=== PATIENT | female | born 1960 | race Caucasian/White ===

== ENCOUNTER 2016-03-21 08:15 | Emergency (ER) | payer BC ==
[2016-03-21 08:25] VITALS: BP 130/61
--- NOTE | 2016-03-21 08:44 | UC ---
Respiratory Complaint HPI - HPI Summary HPI Summary: URI symptoms for 10d. Coughed all night last night. Today felt exhausted, productive cough, mild sinus congestion. No ST. Feels chilled and achey, no measured fevers. Non-smoker - History of Current Complaint Chief Complaint: UCRespiratory Stated Complaint: SORE THROAT,CHILLS,COUGH Time Seen by Provider: 03/21/16 08:32 Hx Obtained From: Patient Hx Last Menstrual Period: 10 yrs Onset/Duration: Gradual Onset Timing: Constant Severity Initially: Mild Severity Currently: Mild Character: Cough: Productive Aggravating Factors: Exertion, Recumbent Position Alleviating Factors: Nothing Associated Signs And Symptoms: Positive: Chills, URI, Nasal Congestion, Hoarseness, Sinus Discomfort - Risk Factors Pulmonary Embolism Risk Factors: Negative Cardiac Risk Factors: Negative Pseudomonas Risk Factors: Negative Tuberculosis Risk Factors: Negative - Allergies/Home Medications Allergies/Adverse Reactions: Allergies Allergy/AdvReac Type Severity Reaction Status Date / Time Oxycodone [From Percocet] Allergy Intermediate hallucinati Verified 03/21/16 08: 21 on steroids Allergy hives/rash Uncoded 03/21/16 08:21 Home Medications: Home Medications Cyanocobalamin TAB* [Vitamin B12 TAB*] 500 mcg PO DAILY 03/21/16 [History Confirmed 03/21/16] Dextromethorphan HBr [Vicks Dayquil Cough] 15 mg PO Q6H PRN 03/21/16 [History Confirmed 03/21/16] Multivitamins/Minerals TAB* [Thera M Plus TAB*] 1 tab PO DAILY 03/21/16 [ History Confirmed 03/21/16] PMH/Surg Hx/FS Hx/Imm Hx Endocrine History Of: Denies: Diabetes, Thyroid Disease Cardiovascular History Of: Denies: Cardiac Disorders, Hypertension Respiratory History Of: Denies: COPD, Asthma GI/ History Of: Denies: Ulcer Psychological History Of: Reports: Anxiety - Surgical History Surgical History: Yes Surgery Procedure, Year, and Place: gastric bypass 2012. ovaries and fallopion tubes removed 2010. knee surgery 2009. khoi-1988. R breast- pre-cancerous cells - Family History Known Family History: Positive: Cardiac Disease, Hypertension - Social History Occupation: Employed Full-time - hairdresser Lives: With Family Alcohol Use: None Substance Use Type: None Smoking Status (MU): Never Smoked Tobacco Have You Smoked in the Last Year: No - Immunization History Most Recent Influenza Vaccination: Not the 2015/2016 Season Review of Systems Constitutional: Chills, Fatigue Skin: Negative Eyes: Negative ENT: Nasal Discharge Respiratory: Cough Cardiovascular: Negative Gastrointestinal: Negative Genitourinary: Negative Motor: Negative Neurovascular: Negative Musculoskeletal: Negative Neurological: Negative Psychological: Negative All Other Systems Reviewed And Are Negative: Yes Physical Exam Triage Information Reviewed: Yes Appearance: Well-Appearing, No Pain Distress, Well-Nourished Vital Signs: Initial Vital Signs Temp 98.5 F 03/21/16 08:18 Pulse 72 03/21/16 08:18 Resp 16 03/21/16 08:18 BP 130/61 03/21/16 08:18 Pulse Ox 99 03/21/16 08:18 Vital Signs Reviewed: Yes Eye Exam: Normal ENT: Positive: Pharynx normal, Nasal congestion, TMs normal. Negative: Tonsillar swelling, Tonsillar exudate, Trismus, Muffled/hoarse voice Neck exam: Normal Respiratory Exam: Normal Respiratory: Positive: Lungs clear, Normal breath sounds, No respiratory distress, No accessory muscle use Cardiovascular Exam: Normal Musculoskeletal Exam: Normal Neurological Exam: Normal Psychological Exam: Normal Skin Exam: Normal UC Diagnostic Evaluation - Laboratory O2 Sat by Pulse Oximetry: 99 Respiratory Course/Dx - Differential Dx/Diagnosis Differential Diagnosis/HQI/PQRI: Bronchitis, Lower Resp Infection, Sinusitis Provider Diagnoses: URI Discharge - Discharge Plan Condition: Stable Disposition: HOME Prescriptions: Hydrocodone Polistirex-Chlorph [Tussionex Pennkinetic Ext 10-8 mg/5Ml] 1 teasp PO BID PRN #60 ml MDD 10cc PRN Reason: Cough Patient Education Materials: Upper Respiratory Infection (ED) Referrals: Duncan Kerr MD [Primary Care Provider] -
== END 2016-03-21 08:52 | disposition home or self-care (01) ==
LOC: UCCORT 08:15
DX: J06.9 Acute upper respiratory infection, unspecified (principal); Z88.5 Allergy status to narcotic agent; Z88.8 Allergy status to other drugs, medicaments and biological substances
CPT/HCPCS: 99212; G0463

== ENCOUNTER 2016-09-01 09:41 | Emergency (ER) | payer BC ==
[2016-09-01] MEDS ORDERED: Tetan/Diph/Pertus SYR(Tdap)* 0.5 ML SYR(BOOSTRIX) use SYR IM ONE (10:57)
--- NOTE | 2016-09-01 10:57 | UC ---
Lower Extremity/Ankle HPI - HPI Summary HPI Summary: pw from wood on a deck to left foot 5 days ago. heel very painful - History of Current Complaint Chief Complaint: UCLowerExtremity Stated Complaint: LEFT FOOT WOUND Time Seen by Provider: 09/01/16 10:49 Hx Obtained From: Patient Hx Last Menstrual Period: 10 yrs ?: No Onset/Duration: Sudden Onset, Lasting Days - 5, Still Present Severity Initially: Moderate Severity Currently: Moderate Pain Intensity: 8 Pain Scale Used: 0-10 Numeric Aggravating Factor(s): Standing, Ambulation Alleviating Factor(s): Rest, Elevation Able to Bear Weight: Yes - Allergies/Home Medications Allergies/Adverse Reactions: Allergies Allergy/AdvReac Type Severity Reaction Status Date / Time Oxycodone [From Percocet] Allergy Intermediate hallucinati Verified 09/01/16 10: 49 on steroids Allergy hives/rash Uncoded 09/01/16 10:49 Home Medications: Home Medications Cranberry (Vaccinium Macrocarp [Cranberry] 1,500 mg PO DAILY 09/01/16 [History Confirmed 09/01/16] Ginseng [Ginseng Energy Booster] 100 mg PO DAILY 09/01/16 [History Confirmed 03/20] [place]-3 Fatty Acids [Fish Oil] 1,400 mg PO DAILY 09/01/16 [History Confirmed 03/20] PMH/Surg Hx/FS Hx/Imm Hx Previously Healthy: Yes Psychological History: Depression - Surgical History Surgical History: Yes Surgery Procedure, Year, and Place: gastric bypass 2012. ovaries and fallopion tubes removed 2010. knee surgery 2009. khoi-1988. R breast- pre-cancerous cells - Family History Known Family History: Positive: Cardiac Disease, Hypertension - Social History Occupation: Employed Full-time Lives: With Family Alcohol Use: None Substance Use Type: None Smoking Status (MU): Never Smoked Tobacco Have You Smoked in the Last Year: No - Immunization History Most Recent Influenza Vaccination: Not the 2016/2016 Season Review of Systems Constitutional: Negative Skin: Negative Eyes: Negative ENT: Negative Respiratory: Negative Cardiovascular: Negative Gastrointestinal: Negative Genitourinary: Negative Motor: Negative Neurovascular: Negative Musculoskeletal: Negative, Other: - pain in the soft tissue bottom of left heel Neurological: Negative Psychological: Negative All Other Systems Reviewed And Are Negative: Yes Physical Exam Triage Information Reviewed: Yes Appearance: Well-Appearing, No Pain Distress, Obese Vital Signs Reviewed: Yes Eye Exam: Normal Eyes: Positive: Conjunctiva Clear ENT Exam: Normal ENT: Positive: Normal ENT inspection, Hearing grossly normal. Negative: Nasal congestion, Nasal drainage, Trismus, Muffled/hoarse voice Dental Exam: Normal Neck exam: Normal Neck: Positive: Supple, Nontender Respiratory Exam: Normal Respiratory: Positive: Chest non-tender, No respiratory distress, No accessory muscle use Cardiovascular Exam: Normal Cardiovascular: Positive: RRR, Pulses Normal, Brisk Capillary Refill Abdominal Exam: Normal Musculoskeletal Exam: Normal Musculoskeletal: Positive: Strength Intact, ROM Intact, No Edema Neurological Exam: Normal Neurological: Positive: Alert, Muscle Tone Normal Psychological Exam: Normal Skin Exam: Other Skin: Positive: Other - 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 no drainage, erythema Diagnostics - Radiology No standard instances Xray Interpretation: Positive (See Comments) - osteoarthrits, no fb Radiology Interpretation Completed By: Radiologist Lower Extremity Course/Dx - Course Course Of Treatment: Update tetnus, augmentin crutches prn - Differential Dx/Diagnosis Differential Diagnosis/HQI/PQRI: Cellulitis, Contusion, Infection, Puncture Wound Provider Diagnoses: punture wound left foot Discharge - Discharge Plan Condition: Stable Disposition: HOME Prescriptions: Amoxicillin/Clavulanate TAB* [Augmentin TAB 875*] 875 mg PO BID #20 tab Hydrocodone-Acetaminophen [Hydrocodone/Acetaminophen 5-325 mg] 1 tab PO Q6H #12 tab MDD 4 Patient Education Materials: Soft Tissue Foreign Body (ED), Warm Compress or Soak (ED) Referrals: Colton Barrett MD [Medical Doctor] - 5 Days
[2016-09-01 10:58] VITALS: BP 141/73
--- NOTE | 2016-09-01 12:04 | RAD ---
HISTORY: Left foot wound, foreign body COMPARISONS: None VIEWS: 2, Frontal and lateral views of the left foot FINDINGS: BONE DENSITY: Normal. BONES: There is no displaced fracture. There are calcaneal enthesophytes. There is no appreciable erosion or periosteal reaction. JOINTS: There is osteoarthritis of the midfoot. There is mild osteoarthritis of the first MTP joint. ALIGNMENT: There is no dislocation. SOFT TISSUES: Unremarkable. OTHER FINDINGS: There is no radiopaque foreign body IMPRESSION: OSTEOARTHRITIS. NO RADIOPAQUE FOREIGN BODY. NO ACUTE OSSEOUS INJURY. IF SYMPTOMS PERSIST, RECOMMEND REPEAT IMAGING.
== END 2016-09-01 12:17 | disposition home or self-care (01) ==
LOC: UCCORT 09:41
DX: S91.332A Puncture wound without foreign body, left foot, initial encounter (principal); W45.8XXA Other foreign body or object entering through skin, initial encounter; W22.09XA Striking against other stationary object, initial encounter; Z23 Encounter for immunization
CPT/HCPCS: 90471; 90715; 99212; G0463

== ENCOUNTER 2016-09-24 08:04 | Day surgery (SDC) | payer BC ==
[~2016-09-24 08:04] MED LIST: Buffered Lidocaine 0.9% SYRIN* 5 ML/SYR SYRINGE INTRADERM ONE; Sodium Citrate/Citric Acid* 15 ML UDC PO ONE
[2016-09-24] MEDS ORDERED: Sodium Citrate/Citric Acid* 15 ML UDC ONE (08:46)
[2016-09-24] MEDS ORDERED: ceFAZolin 1 GM in Dextrose (*) 1 GM/50 ML BAG IVPB ONE (08:47)
[2016-09-24] MEDS ORDERED: ceFAZolin 2 GM PREMIX(*) 2 GM/50 ML BAG IVPB ONE (08:47)
[2016-09-24] MEDS ORDERED: Buffered Lidocaine 0.9% SYRIN* 5 ML/SYR SYRINGE ONE (08:47)
[2016-09-24] MEDS ORDERED: Bupivacaine 0.5% SDV PF* 30 ML VIAL ONE (10:35)
[2016-09-24] MEDS ORDERED: Propofol* 10 MG/ML 20 ML BTL IV PUSH ONE (10:42)
[2016-09-24] MEDS ORDERED: Lidocaine 2% PF * 5 ML VIAL ONE (10:42)
[2016-09-24] MEDS ORDERED: fentaNYL* 50 MCG/ML 2 ML VIAL (100 MCG VIAL) ONE ×2 (11:08→12:20)
[2016-09-24] MEDS ORDERED: diPHENhydraMINE IV* 50 MG/ML 1 ml VIAL (BENADRYL) IV PRN (11:42)
[2016-09-24] MEDS ORDERED: HYDROcodone/ACETAMIN 5-325 MG* 1 TAB ONE (12:26)
[2016-09-24] MEDS: fentaNYL* 50 MCG/ML 2 ML VIAL (100 MCG VIAL) IV PRN ×4 (12:28→12:40)
[2016-09-24 14:35] VITALS: BP 131/75
--- NOTE | 2016-09-25 04:00 | OP ---
DATE OF OPERATION: 09/24/16 - [facility] DATE OF : 62 SURGEON: Trav Cast MD. INTEGRATION TECHNICIAN: JEM Ibrahim. ANESTHESIOLOGIST: Abel Alexandra DO ANESTHESIA: General PRE-OP DIAGNOSIS: Retained foreign body, left heel. POST-OP DIAGNOSIS: Retained foreign body, left heel. OPERATIVE PROCEDURE: Removal of left heel and debridement of infected bursa. DESCRIPTION OF PROCEDURE: The patient was taken to the operating room where the thigh tourniquet inflated. We opened up around the puncture wound in the center of the left heel. There were small dark brown splinters in the subcutaneous tissue. No definitive intact splinter was identified. There appeared to be cloudy fluid surrounding this area and so this bursa was excised as well with a #15 blade. We ellipticized the puncture wound as well. A 1-L washout was performed as well as cultures being sent. We then closed the skin with interrupted 2-0 nylon sutures and a compression dressing applied. [id number]/[facility] #: [id number] [facility]
== END 2016-09-24 13:37 | disposition home or self-care (01) ==
LOC: OR 08:04
PROVIDERS: ATTEND Orthopaedic Surgery
DX: S91.342A Puncture wound with foreign body, left foot, initial encounter (principal); E11.9 Type 2 diabetes mellitus without complications; W45.8XXA Other foreign body or object entering through skin, initial encounter; Y93.9 Activity, unspecified; Y92.9 Unspecified place or not applicable
CPT/HCPCS: 87070; 87073; 87076; 87106; 87205; A9270-GY; J0690; J2704; J3010

== ENCOUNTER 2017-02-05 16:01 | Emergency (ER) | payer BC ==
[2017-02-05 18:21] VITALS: BP 121/65
--- NOTE | 2017-02-05 18:38 | UC ---
Respiratory Complaint HPI - HPI Summary HPI Summary: cough x 7 days pain with deep breathing just finished zpack no fever, no chills, no sob no nasal congestion - History of Current Complaint Chief Complaint: UCRespiratory Stated Complaint: UPPER RESP Time Seen by Provider: 02/05/17 18:22 Hx Obtained From: Patient Hx Last Menstrual Period: 10 yrs Onset/Duration: Gradual Onset, Lasting Days - 7, Still Present Timing: Constant Severity Initially: Moderate Severity Currently: Moderate Pain Intensity: 3 Pain Scale Used: 0-10 Numeric Character: Cough: Nonproductive Aggravating Factors: Deep Breaths Alleviating Factors: Nothing Associated Signs And Symptoms: Negative: Dyspnea, Fever, Chills, Wheezing, Hemoptysis, Dizziness, Calf Swelling, URI, Nasal Congestion - Allergies/Home Medications Allergies/Adverse Reactions: Allergies Allergy/AdvReac Type Severity Reaction Status Date / Time Latex Allergy Severe Itching Verified 02/05/17 17:58 Oxycodone [From Percocet] Allergy Intermediate hallucinati Verified 02/05/17 17: 58 on Sulfa Antibiotics Allergy Intermediate Hives Verified 02/05/17 17:58 Tramadol Allergy Intermediate Rash And Verified 02/05/17 17:58 Itching steroids Allergy Severe hives/rash Uncoded 02/05/17 17:58 Home Medications: Home Medications Azithromyxin SHEYLA (NF) [Z-Sheyla (Zithromax) 250 mg tabs #6] 2 tab PO .TODAY, THEN 1 DAILY 02/05/17 [History Confirmed 02/05/17] PMH/Surg Hx/FS Hx/Imm Hx Previously Healthy: Yes - Surgical History Surgical History: Yes Surgery Procedure, Year, and Place: gastric bypass 2012. ovaries and fallopion tubes removed 2010. RIGHT knee surgery 2009. khoi- 1988. R breast- pre-cancerous cells LUMPECTOMY - Family History Known Family History: Positive: Cardiac Disease, Hypertension - Social History Alcohol Use: None Substance Use Type: None Smoking Status (MU): Never Smoked Tobacco Have You Smoked in the Last Year: No - Immunization History Most Recent Influenza Vaccination: Not the 2016/2016 Season Most Recent Tetanus Shot: unknown Review of Systems Constitutional: Negative Skin: Negative Eyes: Negative ENT: Negative Respiratory: Cough Cardiovascular: Negative Is Patient Immunocompromised?: No All Other Systems Reviewed And Are Negative: Yes Physical Exam Triage Information Reviewed: Yes Appearance: Well-Appearing, No Pain Distress, Well-Nourished Vital Signs: Initial Vital Signs Temp 97.6 F 02/05/17 18:01 Pulse 85 02/05/17 18:01 Resp 20 02/05/17 18:01 BP 121/65 02/05/17 18:01 Pulse Ox 98 02/05/17 18:01 Vital Signs Reviewed: Yes Eyes: Positive: Conjunctiva Clear ENT: Positive: Normal ENT inspection, Hearing grossly normal, Pharynx normal Neck exam: Normal Neck: Positive: Supple, Nontender, No Lymphadenopathy Respiratory: Positive: Chest non-tender, Lungs clear, Normal breath sounds Cardiovascular: Positive: RRR, No Murmur, Pulses Normal Musculoskeletal Exam: Normal UC Diagnostic Evaluation - Laboratory O2 Sat by Pulse Oximetry: 98 Respiratory Course/Dx - Differential Dx/Diagnosis Provider Diagnoses: pleurisy Discharge - Discharge Plan Condition: Stable Disposition: HOME Prescriptions: Naproxen [Naproxen 500 mg] 500 mg PO BID #20 tab Patient Education Materials: Pleurisy (ED) Referrals: Nickolas Lincoln MD [Primary Care Provider] - If Needed
== END 2017-02-05 18:35 | disposition home or self-care (01) ==
LOC: UCCORT 16:01
DX: R09.1 Pleurisy (principal); Z98.84 Bariatric surgery status; Z88.5 Allergy status to narcotic agent; Z88.2 Allergy status to sulfonamides; Z91.040 Latex allergy status
CPT/HCPCS: 99212; G0463

== ENCOUNTER 2017-10-18 08:00 | Emergency (ER) | payer BC ==
[2017-10-18 08:40] VITALS: BP 139/61
[2017-10-18] MEDS ORDERED: Ketorolac INJ* 60 MG/2 ML VIAL IM ONE (09:15)
--- NOTE | 2017-10-18 09:58 | RAD ---
INDICATION: 2 days LEFT flank pain. History of kidney stones. COMPARISON: No relevant prior exams available on the [facility] [place]. TECHNIQUE: Multidetector CT images were obtained from the lung bases to the ischial tuberosities. No oral contrast administered. Assessment of the visceral limited without IV contrast. Multiplanar reformation. REPORT: VISUALIZED INFERIOR THORAX: Unremarkable. LIVER / GALLBLADDER / PANCREAS / SPLEEN: Post cholecystectomy. Negative for biliary dilatation. Unremarkable unenhanced liver, pancreas, spleen. ALIMENTARY TRACT: Postsurgical change of Parvin-en-Y gastric bypass without suspicious finding. No abnormality of the small bowel loops or retrocecal appendix. Unremarkable colon. Negative for ascites, free air, hernias. MESENTERIC: Unremarkable. ADRENAL / GENITOURINARY: Normal adrenal glands. Punctate 1 mm stone lower pole calyx RIGHT kidney. Negative for hydronephrosis or perinephric stranding. No conspicuous focal renal lesions. Unremarkable nondilated ureters. Largely decompressed urinary bladder limiting assessment. Unremarkable anteverted uterus and adnexal regions. RETROPERITONEAL: Negative for lymphadenopathy. VASCULAR: Normal diameter abdominal aorta. Partially decompressed IVC indicating lower volume state. BONES: Lumbar sacral spine degenerative spondylosis and facet joint osteoarthritis with resulting bilateral L5-S1 foraminal stenosis. Small bone island at the LEFT iliac crest. Negative for suspicious focal osseous lesions. SOFT TISSUE: Unremarkable. IMPRESSION: #. Nonobstructing 1 mm stone lower pole calyx RIGHT kidney. Negative for ureteral stones or hydronephrosis. Negative for perinephric or periureteral stranding. #. Normal appendix documented. #. No acute abdominal pelvic pathologic process evident.
--- NOTE | 2017-10-18 10:26 | UC ---
Back Pain HPI - HPI Summary HPI Summary: 57 YO F C/O LEFT FLANK PAIN X 2 DAYS. MILD TO SEVERE INTENSITY. WORSE WITH LAYING FLAT. MOVEMENT DOES NOT MAKE IT BETTER OR WORSE. NO FEVER, NO DYSURIA. NL BM, NO ABD PAIN. - History of Current Complaint Chief Complaint: UCBackPain Stated Complaint: UTI SYMPTOMS Time Seen by Provider: 10/18/17 09:05 Hx Obtained From: Patient Hx Last Menstrual Period: 10 yrs Onset/Duration: Sudden Onset, Lasting Days Timing: Constant Severity Initially: Severe Severity Currently: Moderate Pain Intensity: 2 Back Pain: Is Discrete @ - LEFT FLANK Aggravating Factor(s): Other - LAYING FLAT Associated Signs And Symptoms: Negative: Abdominal Pain, Bladder Incontinence, Bowel Incontinence, Pain with Weight Bearing Related History: Similar Episode Dx As - HAS HAD THE SAME PAIN ON AND OFF FOR 6 MONTHS. NO DX TO CAUSE OF PAIN. PATIENT BELIEVES IT IS DUE TO KIDNEY STONES. - Allergies/Home Medications Allergies/Adverse Reactions: Allergies Allergy/AdvReac Type Severity Reaction Status Date / Time latex Allergy Itching Verified 10/18/17 08:36 oxycodone Allergy Hallucinati Verified 10/18/17 08:36 ons Sulfa (Sulfonamide Allergy Hives Verified 10/18/17 08:36 Antibiotics) tramadol Allergy Itchy Rash Verified 10/18/17 08:36 Steroid Allergy Hives, Rash Uncoded 10/18/17 08:36 Home Medications: Home Medications Acetaminophen [Tylenol Arthritis] 1,300 mg PO QAM 10/18/17 [History Confirmed ] Citalopram TAB* [CeleXA TAB*] 5 mg PO DAILY 10/18/17 [History Confirmed 10/18/17 ] Glucosam/Chondr/Collagn/Hyalur [Th Glucosamine/Chondroiti] 1 cap PO DAILY [History Confirmed 10/18/17] PMH/Surg Hx/FS Hx/Imm Hx Previously Healthy: No - DEPRESSION Endocrine History: Diabetes - LEFT FLANK PAIN Respiratory History: Other - NO ASTHMA Other Respiratory History: . Psychological History: Depression - Surgical History Surgical History: Yes Surgery Procedure, Year, and Place: gastric bypass 2012. ovaries and fallopion tubes removed 2010. RIGHT knee surgery 2009. khoi- 1989. R breast- pre-cancerous cells LUMPECTOMY - Family History Known Family History: Positive: Cardiac Disease, Hypertension - Social History Alcohol Use: None Substance Use Type: None Smoking Status (MU): Never Smoked Tobacco Have You Smoked in the Last Year: No - Immunization History Most Recent Influenza Vaccination: Not the Season Most Recent Tetanus Shot: 09/01/16 Review of Systems Constitutional: Negative Skin: Negative - NO RASH ENT: Negative Respiratory: Negative - NO SOB Cardiovascular: Negative Gastrointestinal: Negative Genitourinary: Negative Motor: Negative Neurovascular: Negative Musculoskeletal: Negative Neurological: Negative Psychological: Negative Is Patient Immunocompromised?: No All Other Systems Reviewed And Are Negative: Yes Physical Exam Triage Information Reviewed: Yes Appearance: Well-Appearing, Pain Distress Vital Signs: Initial Vital Signs Temp 98 F 10/18/17 08:30 Pulse 76 10/18/17 08:30 Resp 16 10/18/17 08:30 BP 139/61 10/18/17 08:30 Pulse Ox 100 10/18/17 08:30 Vital Signs Reviewed: Yes ENT Exam: Normal ENT: Positive: Normal ENT inspection Neck: Positive: Supple Respiratory: Positive: Chest non-tender, Lungs clear, Normal breath sounds Cardiovascular: Positive: RRR Abdomen Description: Positive: Nontender, Soft, CVA Tenderness (L) Bowel Sounds: Positive: Present Musculoskeletal Exam: Normal Musculoskeletal: Positive: Strength Intact Neurological Exam: Normal Psychological Exam: Normal Skin Exam: Normal Back Pain Course/Dx - Course Course Of Treatment: HISTORY: pain s/p trauma. COMPARISONS: None. VIEWS: 3, Frontal, lateral, and oblique views of the right wrist. FINDINGS: BONE DENSITY : Normal. BONES: There is no displaced fracture. JOINTS: There is no arthropathy. ALIGNMENT: There is no dislocation. SOFT TISSUES: Unremarkable. OTHER FINDINGS: None. IMPRESSION: NO ACUTE OSSEOUS INJURY. IF SYMPTOMS PERSIST , RECOMMEND REPEAT IMAGING. . <Electronically signed by Pete Reynoso MD in [place]> 10/18/17 1013. DISCUSSED RESULTS WITH THE PATIENT. NO OBVIOUS KIDNEY STONE OR INFECTION. WILL RX NORCO; F/U PMD. LABS PENDING. THE PATIENT KNOWS TO GO TO THE EMERGENCY DEPARTMENT IF WORSE. - Differential Dx/Diagnosis Provider Diagnoses: LEFT FLANK PAIN Discharge - Sign-Out/Discharge Documenting (check all that apply): Patient Departure - Discharge Plan Condition: Stable Disposition: HOME Prescriptions: HYDROcodone/ACETAMIN 5-325 MG* [[place] 5-325 TAB*] 1 tab PO Q4H PRN #20 tab MDD 6 PRN Reason: Pain Patient Education Materials: Flank Pain (ED) Referrals: Nickolas Lincoln MD [Primary Care Provider] - Additional Instructions: FOLLOW UP WITH YOUR DOCTOR. GO TO THE EMERGENCY DEPARTMENT FOR ANY WORSENING OF YOUR CONDITION PAIN, FEVER, YOU FEEL ILL OR QUESTIONS OR CONCERNS. - Billing Disposition and Condition Condition: STABLE Disposition: Home
[2017-10-18 18:38] LABS: ABS Basophils 0 10^3/ul (0-0.2); ABS Eosinophils 0.1 10^3/ul (0-0.6); ABS Lymphocytes 1.4 10^3/ul (1.0-4.8); ABS Monocytes 0.4 10^3/ul (0-0.8); ABS Neutrophils 2.5 10^3/ul (1.5-7.7); ABS Nucleated RBC 0 10^3/ul; Eosinophil % 1.7 % (0-6); Hematocrit 40 % (35-47); Hemoglobin 13.5 g/dl (12.0-16.0); Lymphocyte % 32.4 % (25-47); Mean Corpuscular HGB Conc 34 g/dl (31-36); Mean Corpuscular Hemoglobin 28 pg (27-31); Mean Corpuscular Volume 83 fL (80-97); Mean Platelet Volume 8.7 um3 (7.4-10.4); Nucleated Red Blood Cells % 0.1; Platelet Count 226 10^3/ul (150-450); Red Blood Count 4.82 10^6/ul (4.00-5.40); Red Cell Distribution Width 15 % (10.5-15); White Blood Count 4.4 10^3/ul (3.5-10.8)
[2017-10-18 18:53] LABS: EGFR Non-African American 92.6 (>60)
== END 2017-10-18 10:54 | disposition home or self-care (01) ==
LOC: UCCORT 08:00
DX: R10.9 Unspecified abdominal pain (principal); Z88.1 Allergy status to other antibiotic agents; Z88.4 Allergy status to anesthetic agent; Z88.8 Allergy status to other drugs, medicaments and biological substances; E11.9 Type 2 diabetes mellitus without complications; F32.9 Major depressive disorder, single episode, unspecified
CPT/HCPCS: 36415; 74176; 80053; 81003; 83690; 85025; 96372; 99212; G0463; J1885

== ENCOUNTER 2024-01-17 12:51 | Observation (INO) ==
[~2024-01-17 12:51] MED LIST changes: -Buffered Lidocaine 0.9% SYRIN* 5 ML/SYR SYRINGE INTRADERM ONE; +NS 0.45% 1000 ml BAG 1,000 ML IV SCH; +Naloxone 0.4 mg VIAL 0.4 mg/ml 1 ml VIAL IV PRN; +Propofol 10 mg/ml 100 ML BTL 1,000 MG/100 ML BTL ONE; +Rocuronium 50 mg VIAL 10 mg/ml 5 ml VIAL (50 mg) ONE; -Sodium Citrate/Citric Acid* 15 ML UDC PO ONE; +fentaNYL 100 mcg/2 ml 50 MCG/ML VIAL IV PRN
[2024-01-17] MEDS: Buffered Lidocaine 1% SYRIN 1 ml INTRADERM ONE (13:18)
[2024-01-17] MEDS ORDERED: ceFAZolin 1 GM in Dextrose 1 GM/50 ML BAG ONE (13:19)
[2024-01-17] MEDS ORDERED: ceFAZolin 2 GM PREMIX 2 GM/50 ML BAG ONE (13:19)
[2024-01-17] MEDS ORDERED: Lidocaine 2% PF 5 ML VIAL ONE (13:20)
[2024-01-17] MEDS ORDERED: fentaNYL 100 mcg/2 ml 50 MCG/ML VIAL ONE ×4 (13:20→17:15)
[2024-01-17] MEDS ORDERED: Propofol 10 MG/ML 20 ML BTL ONE ×2 (13:20→17:06)
[2024-01-17] MEDS ORDERED: Midazolam 2 mg/2 ml VIAL 1 mg/ml 2 ml VIAL (2 mg) ONE (13:20)
[2024-01-17] MEDS ORDERED: Dexamethasone IV 4 MG/ML VIAL 1 ml VIAL ONE (13:20)
[2024-01-17] MEDS ORDERED: Ondansetron 4 mg VIAL 2 MG/ML 2 ml VIAL ONE ×2 (13:20→18:47)
[2024-01-17] MEDS ORDERED: Tranexamic Acid 1 GM/100ML BAG 2,000 MG/200 ML BAG IV ONE (13:22)
[2024-01-17 13:33] LABS: Rapid COVID-19 Molecular Undetected (Undetected)
[2024-01-17] MEDS ORDERED: Midazolam 5 mg/5 ml VIAL 1 mg/ml 5 ml VIAL (5 mg) ONE (14:29)
[2024-01-17] MEDS ORDERED: ROPIVACAINE 5 MG/ML 30 ML BTL (0.5%) ONE ×2 (14:30→16:32)
[2024-01-17] MEDS ORDERED: Magnesium Hydroxide LIQ 30 ML UDC PO PRN (15:36)
[2024-01-17] MEDS ORDERED: Ondansetron 4 mg VIAL 2 MG/ML 2 ml VIAL IV PRN (15:36)
[2024-01-17] MEDS ORDERED: Ondansetron ODT 4 mg TAB 4 MG TAB PO PRN (15:36)
[2024-01-17] MEDS ORDERED: Calcium Carb (TUMS) 500 mg CHEW TAB PO PRN (15:36)
[2024-01-17] MEDS ORDERED: Lactulose 30 ml UDC PO PRN (15:36)
[2024-01-17] MEDS ORDERED: Morphine 2 MG/ML SYRINGE IV PRN (15:36)
[2024-01-17] MEDS ORDERED: HYDROmorphone 0.5 MG/0.5 ML SYRINGE ONE (16:17)
[2024-01-17] MEDS ORDERED: hydrALAZINE 20 mg/ml 1 ML Vial IV ONE (16:40)
[2024-01-17] MEDS ORDERED: Rocuronium 50 mg VIAL 10 mg/ml 5 ml VIAL (50 mg) ONE (16:56)
[2024-01-17] MEDS ORDERED: Meperidine 50 mg/ml SYRINGE 1 ml ONE (18:19)
[2024-01-17] MEDS ORDERED: Esmolol 10 MG/ML 10 ML (100 mg) IV ONE (18:30)
[2024-01-17] MEDS: Ondansetron 4 mg VIAL 2 MG/ML 2 ml VIAL IV PRN (18:47)
[2024-01-17] MEDS: Magnesium Hydroxide LIQ 30 ML UDC PO SCH (21:49)
[2024-01-17] MEDS: Lactated Ringers 1000 ml BAG 1,000 ML IV SCH (21:53)
[2024-01-17] MEDS: ceFAZolin 2 GM PREMIX 2 GM/50 ML BAG IV SCH (23:57)
[2024-01-18 06:18] LABS: Hematocrit 32.5 % (35-45); Mean Platelet Volume 9.2 fL (7.5-11.2); Platelet Count 190 10^3/uL (150-450)
[2024-01-18 06:49] LABS: Calcium 8.4 mg/dL (8.6-10.3); Creatinine, Serum 0.78 mg/dL (0.51-0.95); Potassium 4.3 mmol/L (3.5-5.0); eGFR CKD-EPI 85.8 (>60)
[2024-01-18] MEDS: Lactated Ringers 1000 ml BAG 1,000 ML IV SCH (07:11)
[2024-01-18] MEDS: Acetaminophen IV 1 GM/100ML 1,000 MG/100 ML BAG IV ONE (07:11)
[2024-01-18] MEDS: Vitamin THERAPEUTIC TAB PO SCH (07:42)
[2024-01-18] MEDS ORDERED: Dextrose 50% Syringe 50 ml 25 GM/50 ML SYRINGE IV PUSH PRN (08:21)
[2024-01-18] MEDS: DULoxetine DR 30 mg CAP PO SCH (10:19)
[2024-01-18 15:14] VITALS: BP 128/56
[2024-01-18] MEDS ORDERED: Aspirin EC 81 mg TAB.EC (enteric coated) PO SCH (21:00)
== END 2024-01-18 16:20 | disposition home or self-care (01) ==
LOC: SSU 12:51 → OR 12:51 → SSU 21:46
PROVIDERS: ADMIT Orthopaedic Surgery Adult Reconstructive Orthopaedic Surgery; ATTEND Orthopaedic Surgery Adult Reconstructive Orthopaedic Surgery